=== PATIENT | male | born 1995 | race Caucasian/White ===

== ENCOUNTER 2024-12-30 13:15 | Emergency (ER) | payer MEDICAID ==
[~2024-12-30] VITALS: Ht 177.8 cm; Wt 75.5 kg
--- NOTE | 2024-12-30 14:06 | RADIOLOGY REPORT ---
CT CT STROKE ALERT Indication: Stroke Alert EXAM DATE: 12/30/2024 01:44 PM COMPARISON: None TECHNIQUE: CT of the head without intravenous contrast. FINDINGS: There is no intracranial hemorrhage. There is no extra-axial fluid, mass, mass effect or midline shif t. The ventricles are midline and normal in size. Basilar cisterns are patent. Bullock-white differentia tion is maintained. 2.5 cm right maxillary sinus mucosal retention cyst/ polyp. Mastoids well pneumatized. Imaged portio n of the orbits are unremarkable. IMPRESSION: No intracranial hemorrhage or mass effect. 2.5 cm right maxillary sinus mucosal retention cyst / polyp.
--- NOTE | 2024-12-30 14:12 | ELECTROCARDIOGRAPH REPORT ---
[facility] Test Date: 2024-12-30 Test Time: 14:10:13 Pat Name: CHARU LUNA Department: [facility] Patient ID: [id number] Room: Gender: M [employer] Making Machine Operator: : 1995 Requested By: KATARINA HUTTON Order Number: [id number] Reading MD: Measurements Intervals [place] Rate: 87 P: 63 MO: 136 QRS: 85 QRSD: 102 T: 39 QT: 389 QTc: 468 Interpretive Statements Sinus rhythm LAE, consider biatrial enlargement S1,S2,S3 pattern RSR' in V1 or V2, right VCD or RVH Please click the below link to view image of tracing.
--- NOTE | 2024-12-30 14:13 | Physician Documentation ---
History of Present Illness ~ Chief Complaint: Stroke Alert Stated Complaint: R SIDE NUMBNESS ON FACE Time Seen by MD: 13:48 Source: patient Mode of Arrival: POV Exam Limitations: no limitations HPI Chief Complaint: Facial numbness, blurred vision Caveat: None Independent Historians: None History of Present Illness: Patient is a healthy 29-year-old man who comes in complaining of left facial numbness and blurred vision that began 1/2 hour prior to arrival. Last known well time was 12:30 p.m.. Patient denies any weakness in any of his extremities. No other neurological symptoms. Patient denies a headache. Patient states that his father in his 40s from a stroke. Review of systems: All systems were reviewed and are negative except for what is indicated in the history of present illness. Past Medical History: None Past Surgical History: None Social History: No tobacco use, no alcohol use, no drug use Medications: Reviewed as documented Nursing Notes Allergies: Reviewed as documented in Nursing Notes Medication Reconciliation Allergies: Coded Allergies: No Known Allergies (Unverified , 12/30/24) Review of Systems All Other Systems at this time: Reviewed and Negative ROS Patient denies any other acute symptoms other than above. All other systems are negative Physical Exam Vital Signs: RN Vital Signs have been reviewed: Yes, Temperature: 98.5, Source: Oral, Heart Rate: 101, Respiratory Rate: 17, BP: 143/92, Pulse Oximetry: 99, Weight: 75.500 Pulse Oximetry Reflects: adequate oxygenation General Appearance General Appearance: No distress HEENT: Normal OP, moist oral mucosa, PERRL, EOMI Neck: supple, normal ROM, trachea midline Pulmonary: No respiratory distress, CTA, BS equal Cardiac: RRR, no murmur, rub or gallop, GI: nondistended, soft, nontender, normal bowel sounds, no guarding, no rebound Extremities: normal ROM, no swelling, non-tender Skin: intact, dry, warm, no rashes Neuro: AAOx3, speech is clear, no focal motor weakness, equal cloth opener hand, no pronator drift, [id number] intact bilaterally, no visual field deficits Psych: normal affect, good eye contact, no apparent hallucination, normal speech Progress Results/Orders Results/Orders Orders - KATARINA HUTTON MD Monitor (12/30/24 13:46) 2 Large Bore Ivs (12/30/24 13:46) Chest,Single View (12/30/24 13:46) Accucheck (12/30/24 13:46) Ct Stroke Alert (12/30/24 13:33) [place] Prov.Neuro Consult (12/30/24 13:46) Cta Neck/Head (12/30/24 13:30) Completed Orders - KATARINA HUTTON MD Cbc/Diff (12/30/24 13:46) Electrocardiogram (12/30/24 13:46) Chest,Single View (12/30/24 13:46) Ct Stroke Alert (12/30/24 13:33) BMP (12/30/24 13:46) PTT (12/30/24 13:46) Pt Inr (12/30/24 13:46) Cta Neck/Head (12/30/24 13:30) Iohexol 350mg/Ml 100ml (Omnipaque 350mg/ (12/30/24 13:50) Prochlorperazine Inj (Compazine Inj) (12/30/24 16:10) Medications Received in ER Medications (Trade) Dose Ordered Sig/Maribel Route PRN Reason Start Time Stop Time Status Last Admin Dose Admin (Compazine inj) 10 mg ONCE ONCE IV 12/30/24 16:10 12/30/24 16:11 DC 12/30/24 16:26 10 MG Vital Signs 12/30/24 12/30/24 12/30/24 12/30/24 13:34 14:17 14:19 14:32 Temp 98.5 Pulse 101 89 87 Resp 17 17 17 B/P (MAP) 143/92 139/94 (109) 129/95 (106) Pulse Ox 99 99 99 12/30/24 16:29 Pulse 101 Resp 15 B/P (MAP) 122/78 (93) Pulse Ox 99 Laboratory Tests Test 12/30/24 13:45 12/30/24 14:08 Glucometer 97 White Blood Count 9.4 Red Blood Count 4.73 Hemoglobin 13.5 L Hematocrit 41.1 L Mean Corpuscular Volume 86.9 Mean Corpuscular Hemoglobin 28.6 Mean Corpuscular Hemoglobin Concent 33.0 Red Cell Distribution Width 12.9 Platelet Count 296 Mean Platelet Volume 7.7 Neutrophils (%) (Auto) 64.9 Lymphocytes (%) (Auto) 25.2 Monocytes (%) (Auto) 7.3 Eosinophils (%) (Auto) 2.0 Basophils (%) (Auto) 0.6 Neutrophils # (Auto) 6.1 Lymphocytes # (Auto) 2.4 Monocytes # (Auto) 0.7 Eosinophils # (Auto) 0.2 Basophils # (Auto) 0.1 CBC Comment Prothrombin Time 11.8 INR International Normalized Ratio 1.2 Activated Partial Thromboplast Time 28 Coagulation Comments Sodium Level 133 L Potassium Level 3.8 Chloride Level 99 Carbon Dioxide Level 28.4 Anion Gap 6 L Blood Urea Nitrogen 14 Creatinine 1.00 Estimated GFR/1.73 m2 89 BUN/Creatinine Ratio 14.0 Glucose Level 96 Calcium Level 8.6 Albumin 4.3 Chemistry Comments Medical Decision Making Findings Differential diagnosis includes but is not limited to: Hemorrhagic stroke, subarachnoid hemorrhage, ischemic stroke, electrolyte abnormalities, complex migraine, stress EKG independent interpretation: Performed at 2:10 p.m.. Normal sinus rhythm, heart rate 87, normal axis, left atrial enlargement, normal ST segments Chest x-ray, single view, indication: Independent interpretation: Laboratory data independent interpretation: CBC: CMP: Emergency department course/medical decision-making: Consultation/communications: 3:46 p.m.: Case discussed with the neurologist. He will evaluate the patient. Departure Time of Disposition: 17:13 Disposition: 01 HOME / SELF CARE / HOMELESS Impression: Primary Impression: Complex migraine Condition: Stable Discharge Instructions: Migraine Headache, [id number] Additional Instructions: YOUR SYMPTOMS ARE BELIEVED TO BE SECONDARY TO ACHE COMPLEX MIGRAINE. RECOMMEND YOU FOLLOW UP WITH YOUR PRIMARY CARE DOCTOR. RETURN IF SYMPTOMS RECUR OR WORSEN. Referrals: NO PRIMARY CARE PROVIDER (PCP) Education Educated: Patient Educated regarding: diagnosis, treatment, need for follow up Signature Scribe Signature: . Attestation: . KATARINA HUTTON MD Dec 30, 2024 14:13
[2024-12-30 14:18] LABS: MEAN PLATELET VOLUME 7.7 FL (7.4-10.4); RED CELL DISTRIBUTION WIDTH 12.9 % (11.5-14.5)
--- NOTE | 2024-12-30 14:25 | RADIOLOGY REPORT ---
CHEST RADIOGRAPH Indication: Stroke Alert Technique: Single frontal view of the chest was obtained COMPARISON: None FINDINGS: Lines and Tubes: None Lungs: Clear Pleura: No effusion. No pneumothorax. Cardiomediastinal contours: Unremarkable Bones: Unremarkable IMPRESSION: No acute disease.
[2024-12-30 14:32] LABS: CREATININE 1.00 MG/DL (0.60-1.10); TOTAL CARBON DIOXIDE 28.4 MMOL/L (24-32); eCRCL 114 ML/MIN; eGFR 89 ML/MIN
[2024-12-30 14:35] LABS: APTT 28 SECONDS (22-32); INR 1.2 INR
--- NOTE | 2024-12-30 14:50 | RADIOLOGY REPORT ---
EXAM: CT CTA NECK/HEAD HISTORY: stroke alerts COMPARISON: CT CT STROKE ALERT on DOS: 12/30/24 TECHNIQUE: High-resolution helical CT images of the head and neck were performed with 100 ml omnipaqu e 350 IV contrast utilizing CTA protocol. Sagittal and coronal reformatted images and 3-D MIP reconst ructions were obtained. This CT exam was performed using one or more of the following dose reduction techniques: Automated exposure control, adjustment of the mA and/or kV according to patient size, or use of iterative reconstruction technique. Radiation Dose: CT Dose: CTDI volume is 13.76 mGy. Dose-length product is 568.6 mGy*cm FINDINGS: [place] of [place]: No evidence of aneurysmal dilatation or significant stenosis about the ci rcle of [place]. 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 The cavernous and petrous ICAs are patent. Right carotid system: No significant stenosis of the CCA, ICA, or ECA origin. Left carotid system: No significant stenosis of the CCA, ICA, or ECA origin. Vertebrobasilar: The bilateral vertebral arteries and basilar artery are patent. The left vertebral a rtery is dominant. Miscellaneous: There is a mucous retention cyst in the right maxillary sinus. There is bilateral [place] tonsillar hypertrophy without significant airway narrowing. IMPRESSION: 1. No aneurysmal dilatation or significant stenosis about the upper [place] of [place]. 2. No significant stenosis of the bilateral cervical carotid arteries or vertebral arteries. 3. Right maxillary sinus disease. 4. [place] tonsillar hypertrophy without significant airway narrowing.
[2024-12-30 17:37] VITALS: BP 122/78; PULSE 100; RESP 15; TEMP 98.5; O2SAT 99
== END 2024-12-30 17:39 | disposition home or self-care (01) ==
LOC: ER 13:16
DX: G43.909 Migraine, unspecified, not intractable, without status migrainosus (principal); I49.8 Other specified cardiac arrhythmias
CPT/HCPCS: 36415; 70450; 70496; 70498; 71045; 80048; 82948; 85025; 85610; 85730; 93005; 96374; 99285; J0780; Q9967